=== PATIENT | female | born 1980 | race Caucasian/White ===

== ENCOUNTER → 2021-01-15 | Emergency (ER) | payer OTHER ==
[~2021-01-15] VITALS: Ht 170.2 cm; Wt 117.9 kg
[~2021-01-15] MED LIST: BUPROPION HCL200 M1 PO; BUSPIRONE HCL7.5 MG PO; SERTRALINE20 MG/1 ML PO
== END | disposition left against medical advice (07) ==
LOC: ER 21:10
DX: G43.801 Other migraine, not intractable, with status migrainosus (principal); G44.89 Other headache syndrome